=== PATIENT | female | born 1945 | race Caucasian/White ===

== ENCOUNTER 2020-12-05 12:45 | Emergency (ER) | payer MEDICARE, BC ==
[~2020-12-05] VITALS: Ht 172.7 cm; Wt 74.8 kg
[2020-12-05] MEDS ORDERED: Calcium Chloride 13.6 MEQ/10ML VIAL IV ONE (12:47)
[2020-12-05] MEDS ORDERED: SODIUM BICARBONATE SYR 50 MEQ/50 ML DISP.SYRIN IV ONE (12:47)
[2020-12-05] MEDS ORDERED: EPINEPHRINE (1:10,000) SYRINGE 1 MG/10 ML DISP.SYRIN IVP ONE (12:47)
[2020-12-05] MEDS ORDERED: FEE EMEERGENCY 1 MIN EA MC ONE (12:47)
[2020-12-05] MEDS ORDERED: IV NS 0.9% 500 ML IV ONE ×2 (13:00→18:00)
[2020-12-05] MEDS ORDERED: AZITHROMYCIN 500 MG in IV D5W 250 ML IV ONE (13:30)
[2020-12-05] MEDS ORDERED: DEXAMETHASONE SOD PHOSPHATE 10 MG/ML VIAL IV ONE (13:30)
[2020-12-05] MEDS ORDERED: CEFTRIAXONE 1GM BAG (ER ONLY) 50 ML IV ONE (13:30)
[2020-12-05 13:34] LABS: BASOPHILS # (AUTO) 0.1 /CMM (0.0-0.2); BASOPHILS % (AUTO) 0.3 % (0.0-2.0); RED BLOOD CELL COUNT(AUTO) 4.01 MIL/uL (4.0-5.2)
[2020-12-05] MEDS ORDERED: DEXAMETHASONE SOD PHOSPHATE 10 MG/ML VIAL ONE (13:35)
[2020-12-05 13:36] LABS: CALCIUM, SERUM 8.9 mg/dL (8.5-10.1); CARBON DIOXIDE 13 mmol/L (21-32); CHLORIDE 103 mmol/L (98-107); CREATININE 1.7 mg/dL (0.6-1.3); GLUCOSE 213 mg/dL (74-106); POTASSIUM 4.8 mmol/L (3.5-5.1); SODIUM SERUM 138 mmol/L (136-145); UREA NITROGEN, BLOOD 35 mg/dL (7-18)
[2020-12-05 13:37] LABS: HEMATOCRIT 38 % (33-45); HEMOGLOBIN 12.2 g/dL (11.5-14.8); LYMPHOCYTES % (AUTO) 4.1 % (20.0-44.0); MEAN CORPUSCULAR HGB CONC 32 g/dl (31.0-36.0); MEAN CORPUSCULAR VOLUME 95 fL (82-100); MONOCYTES # (AUTO) 0.9 /CMM (0.1-1.30); MONOCYTES % (AUTO) 3.5 % (2.0-12.0); NEUTROPHILS # (AUTO) 23.2 /CMM (1.8-8.9); NEUTROPHILS % (AUTO) 92.1 % (43.0-81.0); PLATELET COUNT (AUTO) 465 /CMM (150-450); WHITE BLOOD COUNT (AUTO) 25.2 K/uL (4.3-11.0)
[2020-12-05 13:49] LABS: ALANINE AMINOTRANSFERASE 190 U/L (12-78); ALBUMIN 2.5 g/dL (3.4-5.0); ALKALINE PHOSPHATASE 82 U/L (46-116); ASPARTATE AMINOTRANSFERASE 305 U/L (15-37); TOTAL PROTEIN, SERUM 7.2 g/dL (6.4-8.2)
[2020-12-05] MEDS ORDERED: FOLI0.8C PO (13:49)
[2020-12-05] MEDS ORDERED: QUIN324C PO (13:49)
[2020-12-05] MEDS ORDERED: FLUO40CA8 PO (13:49)
[2020-12-05] MEDS ORDERED: METH150T PO (13:49)
[2020-12-05] MEDS ORDERED: ZOLP5TAB8 PO (13:49)
[2020-12-05] MEDS ORDERED: LIDO700A30 TP (13:49)
[2020-12-05] MEDS ORDERED: OFLO5DRO5 RIGHTEYE (13:49)
[2020-12-05] MEDS ORDERED: [UNRECOGNIZED DRUG - CODE] PO (13:49)
[2020-12-05] MEDS ORDERED: METH20TA9 PO (13:49)
[2020-12-05] MEDS ORDERED: CLON0.5T4 PO (13:49)
[2020-12-05] MEDS ORDERED: ASPI-1169 PO (13:49)
[2020-12-05] MEDS ORDERED: OXYC10TA49 PO (13:49)
[2020-12-05] MEDS ORDERED: FENT1PAT5 TD (13:49)
[2020-12-05] MEDS ORDERED: CHLO10CA6 PO (13:49)
[2020-12-05] MEDS ORDERED: LEVO100T9 PO (13:49)
[2020-12-05] MEDS ORDERED: PRED10TA PO (13:49)
[2020-12-05] MEDS ORDERED: ONDA4TAB5 PO (13:49)
[2020-12-05] MEDS ORDERED: THIA100T74 PO (13:49)
[2020-12-05] MEDS ORDERED: POLY17PO4 PO (13:49)
[2020-12-05] MEDS ORDERED: ACET325T53 PO (13:49)
[2020-12-05 14:10] LABS: B-TYPE NATRIURETIC PEPTIDE 124985 PG/ML (0-125)
[2020-12-05 14:27] LABS: CREATINE KINASE, TOTAL 116 U/L (26-192); FERRITIN 2334 ng/mL (8-388)
[2020-12-05] MEDS ORDERED: POLYETHYLENE GLYCOL 3350 17 GM POWD.PACK PO PRN (14:30)
[2020-12-05] MEDS ORDERED: MAGNESIUM HYDROXIDE 30 ML UDC PO PRN (14:30)
[2020-12-05] MEDS ORDERED: MAG HYDROX/AL HYDROX/SIMETH 30 ML UDC PO PRN (14:30)
[2020-12-05] MEDS ORDERED: LIDOCAINE 5% (PATCH) 1 EA PATCH TP PRN (14:30)
[2020-12-05] MEDS ORDERED: ONDANSETRON HCL/PF 4 MG/2 ML VIAL IVP PRN (14:30)
[2020-12-05] MEDS ORDERED: Z GUARD REMEDY 2 OZ OINT TP PRN (14:30)
[2020-12-05] MEDS ORDERED: MORPHINE SULFATE INJ 2 MG/ML DISP.SYRIN IV PRN (14:30)
[2020-12-05] MEDS ORDERED: Medication Not On Formulary EA (Ondansetron Hcl (Zofran) 8 MG) PO PRN (14:30)
[2020-12-05] MEDS ORDERED: ACETAMINOPHEN 325 MG TABLET PO PRN (14:30)
[2020-12-05 15:07] LABS: C-REACTIVE PROTEIN 9.9 mg/dL (0.0-0.9)
[2020-12-05 15:32] LABS: D-DIMER 17.53 mg/L(FEU (0.17-0.50)
[2020-12-05 16:47] LABS: BILIRUBIN,DIRECT 0.4 mg/dL (0.0-0.2)
[2020-12-05] MEDS ORDERED: ENOXAPARIN SODIUM 40 MG/0.4 ML DISP.SYRIN SQ SCH (17:00)
[2020-12-05] MEDS ORDERED: SENNOSIDES/DOCUSATE SODIUM 1 UDTAB TABLET PO SCH (17:00)
[2020-12-05 17:30] VITALS: BP 88/46
[2020-12-05] MEDS ORDERED: CHLORDIAZEPOXIDE HCL 10 MG CAPSULE PO SCH (21:00)
[2020-12-05] MEDS ORDERED: QUININE SULFATE 324 MG PO SCH (22:00)
[2020-12-06] MEDS ORDERED: Medication Not On Formulary EA (Methylphenidate Hcl 20 MG) PO SCH (09:00)
[2020-12-06] MEDS ORDERED: ASPIRIN 81 MG TAB.CHEW PO SCH (09:00)
[2020-12-06] MEDS ORDERED: THIAMINE HCL 100 MG TABLET PO SCH (09:00)
[2020-12-06] MEDS ORDERED: METHYLNALTREXONE BROMIDE 150 MG PO SCH (09:00)
[2020-12-06] MEDS ORDERED: ENOXAPARIN SODIUM 40 MG/0.4 ML DISP.SYRIN SQ SCH (09:00)
[2020-12-06] MEDS ORDERED: LEVOTHYROXINE SODIUM 100 MCG TABLET PO SCH (09:00)
[2020-12-06] MEDS ORDERED: DEXAMETHASONE SOD PHOSPHATE 10 MG/ML VIAL IJ SCH (09:00)
[2020-12-07] MEDS ORDERED: FENTANYL TD PATCH (50 MCG/HR) 50 MCG/HR PATCH.TD72 TD SCH (09:00)
== END 2020-12-05 18:30 | disposition expired ==
LOC: ER 12:46
DX: A41.89 Other specified sepsis (principal); U07.1 COVID-19; J12.82 Pneumonia due to coronavirus disease 2019; R65.21 Severe sepsis with septic shock; J96.01 Acute respiratory failure with hypoxia; E87.2 Acidosis; E03.9 Hypothyroidism, unspecified; F09 Unspecified mental disorder due to known physiological condition; I21.A1 Myocardial infarction type 2; I10 Essential (primary) hypertension; G61.81 Chronic inflammatory demyelinating polyneuritis; F41.9 Anxiety disorder, unspecified; F32.9 Major depressive disorder, single episode, unspecified; Z79.82 Long term (current) use of aspirin; Z79.899 Other long term (current) drug therapy; N17.9 Acute kidney failure, unspecified; Z87.820 Personal history of traumatic brain injury
CPT/HCPCS: 36415; 71045; 80053; 82248; 82550; 82728; 83605 ×2; 83615; 83880; 84145; 84484; 85025; 85378; 85385; 85730; 86140; 87040 ×2; 87081; 87804; 92950; 93005; 96365; 96367; 96375; 99291; J0171; J0456; J0696; J1100; J3490; J7040 ×2; C9803; J7060; U0003